=== PATIENT | male | born 1990 | race Caucasian/White ===

== ENCOUNTER 2017-04-12 12:30 | Emergency (ER) | payer OTHER ==
[~2017-04-12] VITALS: Ht 172.7 cm; Wt 54.9 kg
[~2017-04-12 12:30] MED LIST: IBUP-103 PO; PROT1POW PO
[2017-04-12 12:40] VITALS: TEMP 36.4; Ht 172.7 cm; Wt 54.9 kg
--- NOTE | 2017-04-12 12:49 | EMERGENCY ROOM VISIT NOTE ---
History Report prepared by Deniz: Moises Alexandre Under the Supervision of: Dr. Arnulfo Wren M.D. First contact with patient: 12:33 Chief Complaint: SYNCOPE Stated Complaint: SYNCOPE History of Present Illness The patient is a 26 year old male who presents to the Emergency Room via EMS after 2 syncopal episodes prior to arrival this morning. The patient says that he was out drinking at a bar last night, and lost his debit card, so he went to the bank around an hour ago to cancel his debit card. He states that he was talking to the [place] for around 20 minutes, and proceeded to become a bit dizzy , so he sat down, he fell out of the chair and woke up with an abrasion on his face and a nose bleed. He says that when he woke up, it felt like he was waking up from sleep. The paramedics were then called. The patient says that while EMS was taking his blood pressure, he got really dizzy again and had another syncopal episode. The patient's second syncopal episode was when sitting. Per the patient's friend who witnessed the incidents, the patient said he was dizzy and then fell forward, he stiffed up and was unresponsive for around 30 to 45 seconds. The patient was initially confused when he woke up but then regained his senses pretty quickly. The patient says that he has had a cough the past couple of days which has been resolving. He denies any chest pain, tongue biting , neck pain, headache, or nausea. He says that he has no family history of seizures. He is a smoker. Source of History: patient, family, EMS Onset: Prior to arrival within past hour Position: other (global - syncope) Symptom Intensity: 2 episodes Timing: other (episodes) Associated Symptoms: + LOC, + cough (past few days), No headache, No neck pain, No nausea Note: Associated symptoms: Feels thirsty. Dizziness. Abrasion to face after fall. Nose bleed now resolved. Denies tongue biting. Review of Systems See HPI for pertinent positives & negatives. A total of 10 systems reviewed and were otherwise negative. Past Medical & Surgical Medical Problems: (1) No chronic diseases present Family History No pertinent family history Social History Smoking Status: Current Every Day Smoker Alcohol Use: occasionally Marital Status: single Occupation Status: unemployed Current/Historical Medications No Active Prescriptions or Reported Meds Allergies Coded Allergies: No Known Allergies (Unverified , 04/12/17) Physical Exam Vital Signs Date Time Temp Pulse Resp B/P (MAP) Pulse Ox O2 Delivery O2 Flow Rate FiO2 04/12/17 14:25 80 18 118/64 97 04/12/17 13:25 79 16 140/91 96 Room Air 04/12/17 12:47 81 04/12/17 12:40 36.4 85 16 128/81 98 Room Air Physical Exam GENERAL: Patient is in no acute distress. HEENT: Evidence for previous nasal bleeding, no active bleeding. Nose appears stable and is very minimally tender. Abrasion to right face just lateral and inferior to eye. No bony stepoff about face to suggest fracture. No dental trauma. Mucous membranes quite dry. Pupils equal and reactive to light. NECK: No stridor, no adenopathy, no meningismus, trachea is midline. Nontender posterior c-spine. LUNGS: Clear to auscultation bilaterally, no wheeze, no rhonchi, breath sounds equal. HEART: Without murmurs gallops or rubs, regular rate and rhythm. ABDOMEN: Soft, nontender, bowel sounds positive, no hernias, no peritonitis. EXTREMITIES: No cyanosis or edema, full range of motion of all the joints without pain or difficulty, no signs for acute trauma. NEUROLOGIC: Oriented x 3, no acute motor or sensory deficits, no focal weakness. SKIN: No rash, no jaundice, no diaphoresis. Medical Decision & Procedures ECG Indication: syncope Rate (beats per minute): 79 Rhythm: normal sinus Findings: no acute ischemic change, no ectopy ED Course 1236: The patient was evaluated in room C6. A complete history and physical exam was performed. 1408: Reevaluated the patient and he is resting comfortably. Discussed results and discharge instructions: he verbalized understanding and agreement. The patient is ready for discharge. Medical Decision Differential diagnosis includes but is not limited to dehydration, syncope, dysrhythmia, anemia, electrolyte imbalance, infection, seizure. The patient presents with what sounds like 2 brief syncopal events. There was no true documented seizure activity. The patient did not bite his tongue or lose urinary continence. The patient admits to drinking alcohol heavily last evening and he feels quite thirsty today. I suspect he is dehydrated and had a syncopal event because of dehydration. I did recommend IV fluids and laboratory testing, the patient refused any lab work or IV. He did agree to an EKG. This showed a normal sinus rhythm, no acute ischemia. The patient was able to drink oral fluids here, his heart rate has decreased. He feels well. I do think he can be discharged. I discussed imaging with him, he does not want any imaging. He states he has no headache and his nose feels fine. Medication Reconcilliation Current Medication List: was personally reviewed by me Blood Pressure Screening Patient's blood pressure: Normal blood pressure Impression Primary Impression: Syncope Additional Impression: Dehydration Scribe Attestation The scribe's documentation has been prepared under my direction and personally reviewed by me in its entirety. I confirm that the note above accurately reflects all work, treatment, procedures, and medical decision making performed by me. Departure Information Dispostion Home / Self-Care Prescriptions No Active Prescriptions or Reported Meds Referrals No Doctor, Assigned (PCP) Patient Instructions My [facility] Additional Instructions fluids rest stay hydrated return if worsening or have return of symptoms Problem Qualifiers Primary Impression: Syncope Syncope type: unspecified Qualified Codes: R55 - Syncope and collapse
[2017-04-12 14:25] VITALS: BP 118/64; PULSE 80; O2SAT 97
== END 2017-04-12 14:26 | disposition home or self-care (01) ==
LOC: EDBD 12:30 → C.EDC 12:32
DX: R55 Syncope and collapse (principal); E86.0 Dehydration; F17.200 Nicotine dependence, unspecified, uncomplicated